=== PATIENT | female | born 1975 | race Two or more races ===

== ENCOUNTER 2017-12-04 18:53 | Emergency (ER) | payer OTHER ==
[~2017-12-04] VITALS: Ht 170.2 cm; Wt 62.1 kg
[~2017-12-04 18:53] MED LIST: CELEBREX100 MG PO; CIPRO500 MG PO; VISTARIL25 MG PO
== END 2017-12-04 22:17 | disposition home or self-care (01) ==
LOC: ER 18:53
DX: R10.13 Epigastric pain (principal); R11.2 Nausea with vomiting, unspecified

== ENCOUNTER 2018-03-28 07:13 | Outpatient (CLI) | payer OTHER | END 2018-03-28 07:24 | disposition home or self-care (01) | LOC: MAMO-SONO 07:13 | DX: Z12.31 Encounter for screening mammogram for malignant neoplasm of breast (principal); N64.0 Fissure and fistula of nipple ==

== ENCOUNTER 2018-11-10 06:19 | Emergency (ER) | payer OTHER ==
[~2018-11-10] VITALS: Ht 170.2 cm; Wt 64.9 kg
[2018-11-10] MEDS ORDERED: VISTARIL25 MG PO (10:59)
== END 2018-11-10 11:17 | disposition home or self-care (01) ==
LOC: ER 06:19
DX: F06.4 Anxiety disorder due to known physiological condition (principal); R00.2 Palpitations

== ENCOUNTER 2019-05-03 09:01 | Outpatient (CLI) | payer OTHER | END 2019-05-03 09:06 | disposition home or self-care (01) | LOC: MAMO-SONO 09:01 | DX: Z12.31 Encounter for screening mammogram for malignant neoplasm of breast (principal) ==

== ENCOUNTER 2019-06-26 08:19 | Emergency (ER) | payer OTHER ==
[~2019-06-26] VITALS: Ht 170.2 cm; Wt 63.5 kg
[2019-06-26] MEDS ORDERED: VISTARIL25 MG PO (10:59)
== END 2019-06-26 12:13 | disposition home or self-care (01) ==
LOC: ER 08:19
DX: R00.2 Palpitations (principal); F06.4 Anxiety disorder due to known physiological condition